=== PATIENT | male | born 1965 | race Caucasian/White ===

== ENCOUNTER 2019-03-05 11:41 | Emergency (ER) | payer OTHER ==
[2019-03-05 14:19] LABS: Alanine Aminotransfer (ALT/SGP 63 U/L (12-78); Albumin, Blood 3.3 g/dL (3.4-5.0); Albumin/Globulin Ratio 0.8 (0.8-1.8); Alk Phos 85 U/L (50-136); Anion Gap 7 mmol/L (6-16); Aspartate Aminotrans (AST/SGOT 40 U/L (12-37); Bilirubin, Total 0.3 mg/dL (0.1-1.0); Blood Urea Nitrogen 15 mg/dL (8-24); Bun/Creatinine Ratio 18.1 (12.0-20.0); CO2, Blood 20 mmol/L (21-32); Chloride, Blood 112 mmol/L (98-108); Creatinine, Blood 0.83 mg/dL (0.60-1.20); Glomerular Filtration Rate >60 (60-); Glucose, Blood 77 mg/dL (70-99); Potassium, Blood 4.9 mmol/L (3.5-5.5); Sodium, Blood 139 mmol/L (136-145); Total Protein, Blood 7.3 g/dL (6.4-8.2); Troponin I <0.015 ng/mL (0.000-0.040)
== END 2019-03-05 16:20 | disposition home or self-care (01) ==
LOC: ER 11:41
PROVIDERS: Emergency Medicine
DX: R07.9 Chest pain, unspecified (principal); F17.220 Nicotine dependence, chewing tobacco, uncomplicated
CPT/HCPCS: 71046; 80053; 83690; 84484; 93005; 93010; 99285-25

== ENCOUNTER → 2022-06-05 | Outpatient (CLI) | payer OTHER ==
[2022-06-05 16:42] LABS: BASOPHILS ABSOLUTE AUTO 0.09 K/mm3 (0.00-0.23); BASOPHILS PERCENT AUTO 1 % (0-2); EOSINOPHILS ABSOLUTE AUTO 0.34 K/mm3 (0.00-0.68); EOSINOPHILS PERCENT AUTO 5 % (0-6); Hematocrit 47.4 % (37.0-53.0); Hemoglobin 16.2 g/dL (13.5-17.5); IMMATURE GRAN ABSOLUTE AUTO 0.07 K/mm3 (0.00-0.10); IMMATURE GRAN PERCENT AUTO 1 % (0-1); LYMPHOCYTES ABSOLUTE AUTO 1.76 K/mm3 (0.84-5.20); LYMPHOCYTES PERCENT AUTO 28 % (21-46); MONOCYTES PERCENT AUTO 8 % (4-13); Mean Corpuscular HGB 30.5 pg (26.0-34.0); Mean Corpuscular HGB Conc 34.2 g/dL (31.5-36.5); Mean Corpuscular Volume 89 fL (80-100); Mean Platelet Volume 11.1 fL (9.1-12.4); NEUTROPHILS ABSOLUTE AUTO 3.56 K/mm3 (1.96-9.15); NEUTROPHILS PERCENT AUTO 56 % (41-73); Platelet Count 272 K/mm3 (150-400); RDW Coefficient Variation 12.8 % (11.7-14.2); RDW Standard Deviation 41.7 fL (35.1-46.3); Red Blood Cell Count 5.31 M/mm3 (4.30-5.90); White Blood Cell Count 6.32 K/mm3 (4.00-11.30)
[2022-06-05 20:04] LABS: Alanine Aminotransfer (ALT/SGP 35 U/L (12-78); Albumin, Blood 3.8 g/dL (3.4-5.0); Albumin/Globulin Ratio 1.1 (0.8-1.8); Alk Phos 72 U/L (50-136); Anion Gap Unable to Calculate mmol/L (6-16); Aspartate Aminotrans (AST/SGOT 18 U/L (12-37); Bilirubin, Total 0.3 mg/dL (0.1-1.0); Blood Urea Nitrogen 13 mg/dL (8-24); Bun/Creatinine Ratio 12.7 (12.0-20.0); CHOL/HDL RATIO 5.1; CO2, Blood 31 mmol/L (21-32); Calcium, Blood 9.4 mg/dL (8.5-10.1); Chloride, Blood 109 mmol/L (98-108); Cholesterol 275 mg/dL (50-200); Creatinine, Blood 1.02 mg/dL (0.60-1.20); Globulin, Blood 3.4 g/dL (2.2-4.0); Glomerular Filtration Rate 86 (60-); Glucose, Blood 101 mg/dL (70-99); HDL Cholesterol 54 mg/dL (>39); LDL/HDL RATIO 3.3; Low Density Lipoprotein Chol 178 mg/dL (0-110); Potassium, Blood 4.5 mmol/L (3.5-5.5); Prostate Specific Antigen 0.578 ng/mL (0.000-4.000); Sodium, Blood 138 mmol/L (136-145); Total Protein, Blood 7.2 g/dL (6.4-8.2); Triglycerides 216 mg/dL (30-160); Very Low Density Lipoprot Chol 43 mg/dL (6-32)
== END | disposition home or self-care (01) ==
LOC: LAB SHORT 14:38 → LAB 14:38
PROVIDERS: Family Medicine
DX: Z12.5 Encounter for screening for malignant neoplasm of prostate (principal); E78.5 Hyperlipidemia, unspecified; Z79.899 Other long term (current) drug therapy
CPT/HCPCS: 80053; 80061; 85025; G0103

== ENCOUNTER → 2023-02-18 | Outpatient (CLI) | payer OTHER | LOC: LAB SHORT 17:55 → LAB 17:55 | DX: L02.423 Furuncle of right upper limb (principal) | CPT/HCPCS: 87070; 87205 ==